=== PATIENT | male | born 1970 | race Caucasian/White ===

== ENCOUNTER 2019-03-31 10:33 | Emergency (ER) | payer SELFPAY ==
[~2019-03-31] VITALS: Ht 193 cm; Wt 136.4 kg
[2019-03-31 13:05] VITALS: BP 142/89
== END 2019-03-31 13:15 | disposition home or self-care (01) ==
LOC: EMS 10:35
DX: R76.11 Nonspecific reaction to tuberculin skin test without active tuberculosis (principal)

== ENCOUNTER 2022-02-13 14:14 | Inpatient (IN) | payer OTHER, MEDICAID ==
[~2022-02-13] VITALS: Ht 193 cm; Wt 144.7 kg
[2022-02-13] MEDS ORDERED: ACETAMINOPHEN 325 MG TABLET PO PRN (20:45)
[2022-02-13] MEDS ORDERED: OxyCODONE HCL/ACETAMINOPHEN 5-325 MG TABLET PO PRN (21:00)
[2022-02-13] MEDS ORDERED: POLYETHYLENE GLYCOL 3350 17 GM PACKET PO PRN (21:00)
[2022-02-13] MEDS: ETHYL ALCOHOL 62% ANTISEPTIC NASAL SANITIZER 0.6 ML AMPUL NASAL SCH (21:26)
[2022-02-13] MEDS: METOPROLOL TARTRATE 25 MG TABLET PO SCH (21:26)
[2022-02-13] MEDS: DOCUSATE SODIUM 250 MG CAPSULE PO SCH (21:26)
[2022-02-13 21:27] VITALS: BP 109/78
[2022-02-13] MEDS: GABAPENTIN 300 MG CAPSULE PO SCH (21:27)
[2022-02-13] MEDS: SENNA 187 MG TABLET PO SCH (21:27)
[2022-02-13] MEDS: HEPARIN SODIUM,PORCINE 5,000 UNITS/ML VIAL SQ SCH (21:27)
[2022-02-13] MEDS: OxyCODONE HCL/ACETAMINOPHEN 10-325 MG TABLET PO PRN (21:27)
[2022-02-14] MEDS: OxyCODONE HCL/ACETAMINOPHEN 10-325 MG TABLET PO PRN ×4 (02:30→17:03)
[2022-02-14 07:33] LABS: BASOPHILS % (AUTO) 0.9 % (0.0-2.0); EOSINOPHILS % (AUTO) 6.5 % (1.0-6.0); HEMOGLOBIN 13.3 g/dL (13.5-17.5); LYMPHOCYTES # (AUTO) 0.9 K/uL (1.0-4.8); LYMPHOCYTES % (AUTO) 12.6 % (22.0-44.0); MEAN CORPUSCULAR HEMOGLOBIN 32.1 pg (26.0-34.0); MEAN CORPUSCULAR HGB CONC 35.1 G/dL (31.0-37.0); MEAN CORPUSCULAR VOLUME 92 fL (80-100); MONOCYTES # (AUTO) 0.8 K/uL (0.1-1.0); MONOCYTES % (AUTO) 10.6 % (2.0-9.0); NEUTROPHILS # (AUTO) 5.1 K/uL (1.8-7.7); NEUTROPHILS % (AUTO) 69.4 % (40.0-70.0); PLATELET COUNT (AUTO) 115 K/uL (150-450); RED BLOOD CELL COUNT(AUTO) 4.16 MIL/uL (4.50-5.90); RED CELL DISTRIBUTION WIDTH 12.6 % (11.5-14.5)
[2022-02-14 07:42] LABS: ALANINE AMINOTRANSFERASE 46 U/L (12-78); ALBUMIN 2.5 g/dL (3.4-5.0); ALKALINE PHOSPHATASE 83 U/L (46-116); ANION GAP 7 mmol/L (8-16); ASPARTATE AMINOTRANSFERASE 24 U/L (15-37); CALCIUM, TOTAL 8.7 mg/dL (8.8-10.5); CARBON DIOXIDE 27 mmol/L (22-29); CHLORIDE 103 mmol/L (98-107); CREATININE 0.91 mg/dL (0.60-1.30); GLUCOSE,RANDOM 109 mg/dL (70-110); POTASSIUM 4.4 mmol/L (3.5-5.1); SODIUM SERUM 137 mmol/L (136-145); TOTAL PROTEIN, SERUM 6.1 g/dL (6.4-8.2); UREA NITROGEN, BLOOD 17 mg/dL (7-18)
[2022-02-14 07:48] LABS: GLOMERULAR FILTR. RATE CALC > 60 mL/min (>60)
[2022-02-14] MEDS: DOCUSATE SODIUM 250 MG CAPSULE PO SCH ×2 (08:00→20:54)
[2022-02-14] MEDS: HEPARIN SODIUM,PORCINE 5,000 UNITS/ML VIAL SQ SCH ×3 (08:00→23:07)
[2022-02-14] MEDS: GABAPENTIN 300 MG CAPSULE PO SCH ×3 (08:01→20:54)
[2022-02-14] MEDS: MULTIVITAMINS, THERAPEUTIC TABLET PO SCH (08:01)
[2022-02-14] MEDS: METOPROLOL TARTRATE 25 MG TABLET PO SCH ×2 (08:01→20:54)
[2022-02-14 08:02] VITALS: BP 136/73
[2022-02-14] MEDS: ETHYL ALCOHOL 62% ANTISEPTIC NASAL SANITIZER 0.6 ML AMPUL NASAL SCH ×2 (08:04→20:54)
[2022-02-14] MEDS: POLYETHYLENE GLYCOL 3350 17 GM PACKET PO SCH ×2 (15:35→20:54)
[2022-02-14] MEDS ORDERED: MAGNESIUM CITRATE 300 ML ORAL SOLUTION PO ONE (18:00)
[2022-02-14 20:20] VITALS: BP 149/74
[2022-02-14] MEDS: SENNA 187 MG TABLET PO SCH (20:54)
[2022-02-15] MEDS: OxyCODONE HCL/ACETAMINOPHEN 10-325 MG TABLET PO PRN ×5 (04:02→21:38)
[2022-02-15 07:30] VITALS: BP 139/74
[2022-02-15] MEDS: ETHYL ALCOHOL 62% ANTISEPTIC NASAL SANITIZER 0.6 ML AMPUL NASAL SCH ×2 (08:08→21:13)
[2022-02-15] MEDS: HEPARIN SODIUM,PORCINE 5,000 UNITS/ML VIAL SQ SCH ×2 (08:08→16:23)
[2022-02-15] MEDS: DOCUSATE SODIUM 250 MG CAPSULE PO SCH ×2 (08:08→21:13)
[2022-02-15] MEDS: MULTIVITAMINS, THERAPEUTIC TABLET PO SCH (08:09)
[2022-02-15] MEDS: POLYETHYLENE GLYCOL 3350 17 GM PACKET PO SCH ×3 (08:09→21:13)
[2022-02-15] MEDS: GABAPENTIN 300 MG CAPSULE PO SCH ×3 (08:09→21:13)
[2022-02-15] MEDS: METOPROLOL TARTRATE 25 MG TABLET PO SCH ×2 (08:09→21:13)
[2022-02-15] MEDS ORDERED: MAGNESIUM CITRATE 300 ML ORAL SOLUTION PO ONE (13:00)
[2022-02-15 17:10] VITALS: BP 140/78
[2022-02-15 21:11] VITALS: BP 128/75
[2022-02-15] MEDS: APIXABAN 5 MG TABLET PO SCH (21:13)
[2022-02-15] MEDS: SENNA 187 MG TABLET PO SCH (21:13)
[2022-02-16 07:30] VITALS: BP 127/78
[2022-02-16] MEDS: ETHYL ALCOHOL 62% ANTISEPTIC NASAL SANITIZER 0.6 ML AMPUL NASAL SCH ×2 (07:33→20:57)
[2022-02-16] MEDS: APIXABAN 5 MG TABLET PO SCH ×2 (07:33→20:58)
[2022-02-16] MEDS: DOCUSATE SODIUM 250 MG CAPSULE PO SCH ×2 (07:33→20:59)
[2022-02-16] MEDS: MULTIVITAMINS, THERAPEUTIC TABLET PO SCH (07:34)
[2022-02-16] MEDS: POLYETHYLENE GLYCOL 3350 17 GM PACKET PO SCH ×3 (07:34→20:58)
[2022-02-16] MEDS: METOPROLOL TARTRATE 25 MG TABLET PO SCH ×2 (07:34→20:58)
[2022-02-16] MEDS: GABAPENTIN 300 MG CAPSULE PO SCH ×3 (07:34→20:59)
[2022-02-16 07:35] LABS: BASOPHILS % (AUTO) 0.8 % (0.0-2.0); HEMATOCRIT 39.6 % (41-53); HEMOGLOBIN 13.5 g/dL (13.5-17.5); LYMPHOCYTES # (AUTO) 0.8 K/uL (1.0-4.8); LYMPHOCYTES % (AUTO) 8.4 % (22.0-44.0); MEAN CORPUSCULAR HEMOGLOBIN 31.4 pg (26.0-34.0); MEAN CORPUSCULAR VOLUME 92 fL (80-100); MONOCYTES % (AUTO) 10.7 % (2.0-9.0); NEUTROPHILS % (AUTO) 77.1 % (40.0-70.0); PLATELET COUNT (AUTO) 133 K/uL (150-450); RED BLOOD CELL COUNT(AUTO) 4.29 MIL/uL (4.50-5.90); RED CELL DISTRIBUTION WIDTH 12.7 % (11.5-14.5)
[2022-02-16] MEDS: OxyCODONE HCL/ACETAMINOPHEN 10-325 MG TABLET PO PRN ×4 (07:35→22:48)
[2022-02-16] MEDS ORDERED: BISACODYL 10 MG RECTAL RECTAL SUPPOSITORY PR PRN (10:15)
[2022-02-16] MEDS ORDERED: SODIUM PHOS/SODIUM BIPHOS 133 ML ENEMA PR PRN (10:15)
[2022-02-16] MEDS ORDERED: LACTULOSE 20 GM/30 ML SOLUTION UDCUP PO PRN (10:15)
[2022-02-16] MEDS: ACETAMINOPHEN 325 MG TABLET PO PRN ×3 (10:37→20:58)
[2022-02-16] MEDS: DOCUSATE SODIUM 283 MG/5 ML MINI-ENEMA PR PRN (11:01)
[2022-02-16 14:20] VITALS: BP 131/77
[2022-02-16 15:08] LABS: COVID AG,FIA SOURCE NASAL SWAB
[2022-02-16 15:39] LABS: INFLUENZA TYPE A NEGATIVE FOR TYPE A (NEGATIVE); INFLUENZA TYPE B NEGATIVE FOR TYPE B (NEGATIVE)
[2022-02-16 17:08] LABS: APPEARANCE,URINE CLEAR (CLEAR); BILIRUBIN,URINE NEGATIVE (NEGATIVE); GLUCOSE, URINE (UA) NEGATIVE (NEGATIVE); KETONES,URINE NEGATIVE (NEGATIVE); LEUKOCYTE ESTERASE ,URINE NEGATIVE (NEGATIVE); NITRATE,URINE NEGATIVE (NEGATIVE); OCCULT BLOOD,URINE NEGATIVE (NEGATIVE); PH,URINE 7.5 (5.0-8.0); PROTEIN,URINE TRACE mg/dL (NEGATIVE); SPECIFIC GRAVITIY, URINE 1.022 (1.003-1.030)
[2022-02-16 17:55] LABS: RBC,URINE None Seen /HPF (0-2)
[2022-02-16 17:59] LABS: BACTERIA,URINE Rare /HPF (None Seen)
[2022-02-16 18:45] VITALS: BP 137/73
[2022-02-16 20:58] VITALS: BP 132/76
[2022-02-16] MEDS: SENNA 187 MG TABLET PO SCH (20:58)
[2022-02-17 08:30] VITALS: BP 128/69
[2022-02-17] MEDS: DOCUSATE SODIUM 250 MG CAPSULE PO SCH ×2 (09:58→21:22)
[2022-02-17] MEDS: ETHYL ALCOHOL 62% ANTISEPTIC NASAL SANITIZER 0.6 ML AMPUL NASAL SCH ×2 (09:58→21:23)
[2022-02-17] MEDS: POLYETHYLENE GLYCOL 3350 17 GM PACKET PO SCH ×3 (09:59→21:22)
[2022-02-17] MEDS: METOPROLOL TARTRATE 25 MG TABLET PO SCH ×2 (09:59→21:22)
[2022-02-17] MEDS: MULTIVITAMINS, THERAPEUTIC TABLET PO SCH (09:59)
[2022-02-17] MEDS: APIXABAN 5 MG TABLET PO SCH ×2 (09:59→21:23)
[2022-02-17] MEDS: GABAPENTIN 300 MG CAPSULE PO SCH ×3 (09:59→21:22)
[2022-02-17] MEDS: OxyCODONE HCL/ACETAMINOPHEN 10-325 MG TABLET PO PRN ×3 (10:00→21:23)
[2022-02-17 11:53] LABS: BASOPHILS % (AUTO) 0.6 % (0.0-2.0); EOSINOPHILS % (AUTO) 2.3 % (1.0-6.0); HEMOGLOBIN 13.6 g/dL (13.5-17.5); LYMPHOCYTES # (AUTO) 0.7 K/uL (1.0-4.8); LYMPHOCYTES % (AUTO) 7.9 % (22.0-44.0); MEAN CORPUSCULAR HEMOGLOBIN 31.8 pg (26.0-34.0); MEAN CORPUSCULAR HGB CONC 34.8 G/dL (31.0-37.0); MEAN CORPUSCULAR VOLUME 92 fL (80-100); MONOCYTES % (AUTO) 11.2 % (2.0-9.0); NEUTROPHILS # (AUTO) 6.9 K/uL (1.8-7.7); PLATELET COUNT (AUTO) 182 K/uL (150-450); RED BLOOD CELL COUNT(AUTO) 4.26 MIL/uL (4.50-5.90); RED CELL DISTRIBUTION WIDTH 12.7 % (11.5-14.5)
[2022-02-17 11:55] LABS: ANION GAP 8 mmol/L (8-16); CALCIUM, TOTAL 8.6 mg/dL (8.8-10.5); CARBON DIOXIDE 26 mmol/L (22-29); CHLORIDE 102 mmol/L (98-107); CREATININE 0.97 mg/dL (0.60-1.30); GLOMERULAR FILTR. RATE CALC > 60 mL/min (>60); GLUCOSE,RANDOM 114 mg/dL (70-110); POTASSIUM 3.9 mmol/L (3.5-5.1); SODIUM SERUM 136 mmol/L (136-145); UREA NITROGEN, BLOOD 19 mg/dL (7-18)
[2022-02-17] MEDS: ACETAMINOPHEN 325 MG TABLET PO PRN ×2 (12:33→18:36)
[2022-02-17] MEDS: DOCUSATE SODIUM 283 MG/5 ML MINI-ENEMA PR PRN (16:36)
[2022-02-17] MEDS: SENNA 187 MG TABLET PO SCH (21:22)
[2022-02-17 21:23] VITALS: BP 136/78
[2022-02-18] MEDS: OxyCODONE HCL/ACETAMINOPHEN 10-325 MG TABLET PO PRN ×5 (01:49→22:00)
[2022-02-18] MEDS ORDERED: GABA-1181 PO (03:31)
[2022-02-18] MEDS ORDERED: METO25 PO (03:31)
[2022-02-18] MEDS ORDERED: DOCU-350 PO (05:08)
[2022-02-18] MEDS ORDERED: MULT-413 PO (05:10)
[2022-02-18] MEDS: ETHYL ALCOHOL 62% ANTISEPTIC NASAL SANITIZER 0.6 ML AMPUL NASAL SCH ×2 (08:16→20:18)
[2022-02-18] MEDS: METOPROLOL TARTRATE 25 MG TABLET PO SCH ×2 (08:17→20:18)
[2022-02-18] MEDS: GABAPENTIN 300 MG CAPSULE PO SCH ×3 (08:17→20:19)
[2022-02-18] MEDS: DOCUSATE SODIUM 250 MG CAPSULE PO SCH ×2 (08:18→21:00)
[2022-02-18] MEDS: POLYETHYLENE GLYCOL 3350 17 GM PACKET PO SCH ×3 (08:18→21:00)
[2022-02-18] MEDS: MULTIVITAMINS, THERAPEUTIC TABLET PO SCH (08:18)
[2022-02-18] MEDS: APIXABAN 5 MG TABLET PO SCH ×2 (08:18→20:18)
[2022-02-18 08:27] VITALS: BP 126/64
[2022-02-18 20:09] VITALS: BP 111/67
[2022-02-18] MEDS: SENNA 187 MG TABLET PO SCH (21:00)
[2022-02-19] MEDS: OxyCODONE HCL/ACETAMINOPHEN 10-325 MG TABLET PO PRN ×2 (03:39→08:30)
[2022-02-19] MEDS: MULTIVITAMINS, THERAPEUTIC TABLET PO SCH (08:24)
[2022-02-19] MEDS: APIXABAN 5 MG TABLET PO SCH ×2 (08:24→20:20)
[2022-02-19] MEDS: METOPROLOL TARTRATE 25 MG TABLET PO SCH ×2 (08:24→20:20)
[2022-02-19] MEDS: GABAPENTIN 300 MG CAPSULE PO SCH ×3 (08:24→20:21)
[2022-02-19] MEDS: DOCUSATE SODIUM 250 MG CAPSULE PO SCH ×2 (08:25→21:00)
[2022-02-19] MEDS: POLYETHYLENE GLYCOL 3350 17 GM PACKET PO SCH ×3 (08:26→21:00)
[2022-02-19 08:30] VITALS: BP 126/69
[2022-02-19] MEDS: ETHYL ALCOHOL 62% ANTISEPTIC NASAL SANITIZER 0.6 ML AMPUL NASAL SCH ×2 (08:30→20:20)
[2022-02-19 08:40] LABS: EOSINOPHILS % (AUTO) 4.4 % (1.0-6.0); HEMATOCRIT 42.2 % (41-53); HEMOGLOBIN 14.5 g/dL (13.5-17.5); LYMPHOCYTES # (AUTO) 0.9 K/uL (1.0-4.8); LYMPHOCYTES % (AUTO) 13.8 % (22.0-44.0); MEAN CORPUSCULAR HEMOGLOBIN 31.6 pg (26.0-34.0); MEAN CORPUSCULAR HGB CONC 34.4 G/dL (31.0-37.0); MEAN CORPUSCULAR VOLUME 92 fL (80-100); MONOCYTES # (AUTO) 0.5 K/uL (0.1-1.0); MONOCYTES % (AUTO) 7.4 % (2.0-9.0); NEUTROPHILS % (AUTO) 73.4 % (40.0-70.0); PLATELET COUNT (AUTO) 220 K/uL (150-450); RED BLOOD CELL COUNT(AUTO) 4.59 MIL/uL (4.50-5.90); RED CELL DISTRIBUTION WIDTH 12.9 % (11.5-14.5)
[2022-02-19] MEDS: COLD CREAM, SKIN EMOLLIENT 170 GM JAR TP SCH ×2 (11:21→20:21)
[2022-02-19] MEDS: OxyCODONE HCL/ACETAMINOPHEN 5-325 MG TABLET PO PRN ×2 (14:19→20:21)
[2022-02-19 20:21] VITALS: BP 144/71
[2022-02-19] MEDS: SENNA 187 MG TABLET PO SCH (21:00)
[2022-02-20] MEDS: OxyCODONE HCL/ACETAMINOPHEN 5-325 MG TABLET PO PRN ×4 (00:30→20:43)
[2022-02-20] MEDS: ETHYL ALCOHOL 62% ANTISEPTIC NASAL SANITIZER 0.6 ML AMPUL NASAL SCH ×2 (08:06→20:43)
[2022-02-20] MEDS: GABAPENTIN 300 MG CAPSULE PO SCH ×3 (08:06→20:44)
[2022-02-20] MEDS: APIXABAN 5 MG TABLET PO SCH ×2 (08:06→20:44)
[2022-02-20] MEDS: COLD CREAM, SKIN EMOLLIENT 170 GM JAR TP SCH ×2 (08:07→20:45)
[2022-02-20] MEDS: MULTIVITAMINS, THERAPEUTIC TABLET PO SCH (08:07)
[2022-02-20] MEDS: METOPROLOL TARTRATE 25 MG TABLET PO SCH ×2 (08:07→20:44)
[2022-02-20] MEDS: POLYETHYLENE GLYCOL 3350 17 GM PACKET PO SCH ×3 (08:09→20:45)
[2022-02-20] MEDS: DOCUSATE SODIUM 250 MG CAPSULE PO SCH ×2 (08:09→20:44)
[2022-02-20 08:23] VITALS: BP 112/68
[2022-02-20 20:43] VITALS: BP 126/64
[2022-02-20] MEDS: SENNA 187 MG TABLET PO SCH (20:45)
[2022-02-21] MEDS: OxyCODONE HCL/ACETAMINOPHEN 5-325 MG TABLET PO PRN ×4 (03:41→20:57)
[2022-02-21] MEDS: ETHYL ALCOHOL 62% ANTISEPTIC NASAL SANITIZER 0.6 ML AMPUL NASAL SCH ×2 (07:24→20:57)
[2022-02-21] MEDS: DOCUSATE SODIUM 250 MG CAPSULE PO SCH ×2 (07:24→20:57)
[2022-02-21] MEDS: GABAPENTIN 300 MG CAPSULE PO SCH ×3 (07:25→20:56)
[2022-02-21] MEDS: APIXABAN 5 MG TABLET PO SCH ×2 (07:25→20:57)
[2022-02-21] MEDS: MULTIVITAMINS, THERAPEUTIC TABLET PO SCH (07:25)
[2022-02-21] MEDS: METOPROLOL TARTRATE 25 MG TABLET PO SCH ×2 (07:25→20:57)
[2022-02-21] MEDS: COLD CREAM, SKIN EMOLLIENT 170 GM JAR TP SCH ×2 (07:26→21:01)
[2022-02-21] MEDS: POLYETHYLENE GLYCOL 3350 17 GM PACKET PO SCH ×3 (07:26→20:58)
[2022-02-21 08:25] VITALS: BP 130/62
[2022-02-21 20:57] VITALS: BP 127/56
[2022-02-21] MEDS: SENNA 187 MG TABLET PO SCH (20:58)
[2022-02-22] MEDS: OxyCODONE HCL/ACETAMINOPHEN 5-325 MG TABLET PO PRN ×4 (01:59→21:46)
[2022-02-22] MEDS ORDERED: APIX5TAB PO ×2 (05:57→17:21)
[2022-02-22] MEDS ORDERED: MULT-1239 PO (05:57)
[2022-02-22 07:30] VITALS: BP 138/71
[2022-02-22] MEDS: ETHYL ALCOHOL 62% ANTISEPTIC NASAL SANITIZER 0.6 ML AMPUL NASAL SCH ×2 (08:10→21:47)
[2022-02-22] MEDS: DOCUSATE SODIUM 250 MG CAPSULE PO SCH ×2 (08:10→21:00)
[2022-02-22] MEDS: APIXABAN 5 MG TABLET PO SCH ×2 (08:13→21:46)
[2022-02-22] MEDS: MULTIVITAMINS, THERAPEUTIC TABLET PO SCH (08:15)
[2022-02-22] MEDS: GABAPENTIN 300 MG CAPSULE PO SCH ×3 (08:15→21:45)
[2022-02-22] MEDS: POLYETHYLENE GLYCOL 3350 17 GM PACKET PO SCH ×3 (08:15→21:00)
[2022-02-22] MEDS: METOPROLOL TARTRATE 25 MG TABLET PO SCH ×2 (08:15→21:46)
[2022-02-22] MEDS: COLD CREAM, SKIN EMOLLIENT 170 GM JAR TP SCH ×2 (08:16→21:46)
[2022-02-22] MEDS ORDERED: GABA-1181 PO (17:21)
[2022-02-22] MEDS ORDERED: Multivitamins/Therapeutic PO (17:21)
[2022-02-22] MEDS ORDERED: DOCU-350 PO (17:21)
[2022-02-22] MEDS ORDERED: POLY17PO47 PO (17:21)
[2022-02-22] MEDS ORDERED: PERCT PO (17:21)
[2022-02-22] MEDS ORDERED: SENN-187 PO (17:21)
[2022-02-22] MEDS ORDERED: METO25 PO (17:21)
[2022-02-22] MEDS: SENNA 187 MG TABLET PO SCH (21:00)
[2022-02-22 21:41] VITALS: BP 107/56
[2022-02-23 07:30] VITALS: BP 129/70
[2022-02-23] MEDS: ETHYL ALCOHOL 62% ANTISEPTIC NASAL SANITIZER 0.6 ML AMPUL NASAL SCH (08:26)
[2022-02-23] MEDS: DOCUSATE SODIUM 250 MG CAPSULE PO SCH (08:27)
[2022-02-23] MEDS: METOPROLOL TARTRATE 25 MG TABLET PO SCH (08:27)
[2022-02-23] MEDS: APIXABAN 5 MG TABLET PO SCH (08:27)
[2022-02-23] MEDS: POLYETHYLENE GLYCOL 3350 17 GM PACKET PO SCH (08:27)
[2022-02-23] MEDS: OxyCODONE HCL/ACETAMINOPHEN 5-325 MG TABLET PO PRN (08:28)
[2022-02-23] MEDS: GABAPENTIN 300 MG CAPSULE PO SCH (08:28)
[2022-02-23] MEDS: COLD CREAM, SKIN EMOLLIENT 170 GM JAR TP SCH (08:28)
[2022-02-23] MEDS: MULTIVITAMINS, THERAPEUTIC TABLET PO SCH (08:28)
[2022-02-23] MEDS ORDERED: ACET325T51 PO (11:29)
== END 2022-02-23 15:20 | disposition home or self-care (01) | DRG 52 ==
LOC: 2WR 18:22
PROVIDERS: ADMIT Physical Medicine & Rehabilitation; ATTEND Physical Medicine & Rehabilitation
DX: G82.20 Paraplegia, unspecified (principal); G96.00 Cerebrospinal fluid leak, unspecified; I82.412 Acute embolism and thrombosis of left femoral vein; M48.061 Spinal stenosis, lumbar region without neurogenic claudication; G83.4 Cauda equina syndrome; I10 Essential (primary) hypertension; I48.0 Paroxysmal atrial fibrillation; Z20.822 Contact with and (suspected) exposure to COVID-19; M21.372 Foot drop, left foot; M21.371 Foot drop, right foot; K59.03 Drug induced constipation; T40.2X5A Adverse effect of other opioids, initial encounter; E66.01 Morbid (severe) obesity due to excess calories; Y92.89 Other specified places as the place of occurrence of the external cause; Z68.38 Body mass index [BMI] 38.0-38.9, adult; Z79.899 Other long term (current) drug therapy; Z88.8 Allergy status to other drugs, medicaments and biological substances
CPT/HCPCS: 71045; 74018; 80048; 80053; 81001; 85025; 87040; 87081; 87804; 93970; 93971; 97110; 97112; 97116; 97163; 97166; 97530; 97535; 99366; J1644; 36415-L1; 36415-TC

== ENCOUNTER → 2022-03-19 | Outpatient (CLI) | payer MEDICAID ==
[~2022-03-19] MED LIST: ACET325T51 PO; APIX5TAB PO; DOCU-350 PO; GABA-1181 PO; METO25 PO; MULT-1239 PO; Multivitamins/Therapeutic PO; PERCT PO; POLY17PO47 PO; SENN-187 PO
== END | disposition home or self-care (01) ==
LOC: RADPV 12:27
PROVIDERS: ATTEND Internal Medicine
DX: I82.512 Chronic embolism and thrombosis of left femoral vein (principal)
CPT/HCPCS: 93971